=== PATIENT | male | born 1940 | race Caucasian/White ===

== ENCOUNTER 2017-09-03 08:44 | Day surgery (SDC) | payer MEDICARE, OTHER ==
[~2017-09-03 08:44] MED LIST: KETOROLAC TROMETHAMINE 0.45% 4 DROP/0.4 ML DROPERETTE OD PRN
[2017-09-03] MEDS ORDERED: EPINEPHRINE INJ/PF 1 MG/1 ML AMPULE ONE (08:56)
[2017-09-03] MEDS ORDERED: LIDOCAINE 1% INJ-PF (10 MG/ML) 30 ML SDV ONE (08:56)
[2017-09-03] MEDS ORDERED: CHONDR SU A NA/HYALUR INTRAOC KIT (SURGICARE) ONE (08:56)
[2017-09-03] MEDS: TROPICAMIDE 1% OPH SOLN 3 ML OD PRN ×3 (09:59→10:32)
[2017-09-03] MEDS: CYCLOPENTOLATE 0.2%/PHENYLEPHRINE 1% OPH SOLN 2 ML OD PRN ×3 (09:59→10:32)
[2017-09-03] MEDS: BESIFLOXACIN HCL 0.6% OPH SUSP 5 ML BOTTLE OD PRN ×4 (10:00→11:00)
[2017-09-03] MEDS: TETRACAINE HCL 0.5% OPH SOLN 2 ML OD PRN ×3 (10:01→10:35)
[2017-09-03] MEDS ORDERED: FENTANYL CITRATE INJ/PF 100 MCG/2 ML AMPUL ONE (10:20)
[2017-09-03] MEDS ORDERED: MIDAZOLAM 2 MG/2 ML INJ ONE (10:20)
--- NOTE | 2017-09-03 13:39 | [facility] DISCHARGE SUMMARY E ---
[facility] Discharge Summary NAME: MELIA FLOWERS AGE: 77Y ADMITTED: 09/03/2017 DISCHARGED: 09/03/2017 DIAGNOSIS: CATARACT, RIGHT EYE. SUMMARY: This is a 77-year-old male who underwent cataract extraction of the right eye. He underwent surgery because he was having trouble seeing medicine bottles and other small print. He should be on a regular diet, no bending at his waist, no heavy lifting. He should use Besivance, Ilevro and Durezol at 3 p.m. and 8 p.m. and sleep with a rigid shield. I will see him for his 1 day postoperative tomorrow. DICTATING PHYSICIAN: CARRIE COE M.D. [id number] PHY#: [id number] ID: [id number] JOB#: [id number] ACCT: [id number] cc:CARRIE COE M.D. >
--- NOTE | 2017-09-03 13:39 | [facility] OPERATIVE REPORT E ---
[facility] Operative Report NAME: MELIA FLOWERS AGE: 77Y DATE OF SURGERY: 09/03/2017 ROOM: PREOPERATIVE DIAGNOSIS: CATARACT, RIGHT EYE. POSTOPERATIVE DIAGNOSIS: CATARACT, RIGHT EYE. OPERATION: Cataract extraction with intraocular lens implant of the right eye. SURGEON: CARRIE COE M.D. ANESTHESIA: Topical. PROCEDURE: After obtaining appropriate consent, the patient's @ eye was prepped and draped in sterile fashion as well as the surgeon in a sterile manner and cataract surgery was started. First a paracentesis blade was used to make a small side-port incision. Viscoelastic was used to inflate the anterior chamber. Next a 2.4 mm incision was made with the paracentesis blade. A continuous capsulorrhexis incision was made using a cystotome and Utrata forceps. Following this hydrodissection was carried out to make the lens fully loose and mobile and it was rotated 90 degrees. Following this, a pjufvn-tvp-oudehnm technique was used to phacoemulsify the lens with a CDE of 20.02. The remaining cortex was removed with irrigation/aspiration. Provisc was instilled into the capsular bag to inflate the bag. A SN60WF, 22.5 diopter lens was placed. The remaining viscoelastic material was removed with irrigation/aspiration. Following this, a 10-0 nylon suture was used to close the incision and it was found to be watertight. Vigamox was instilled in the eye and a protective shield was placed over the eye. The patient returned to the postoperative recovery in stable condition. DICTATING PHYSICIAN: CARRIE COE M.D. [id number] PHY#: [id number] ID: [id number] JOB#: [id number] ACCT: [id number] cc:CARRIE COE M.D. >
== END 2017-09-03 11:42 | disposition home or self-care (01) ==
LOC: SC 08:44
PROVIDERS: ATTEND Internal Medicine
DX: H25.13 Age-related nuclear cataract, bilateral (principal); I10 Essential (primary) hypertension; Z96.653 Presence of artificial knee joint, bilateral; Z79.899 Other long term (current) drug therapy; Z79.82 Long term (current) use of aspirin
CPT/HCPCS: 66984; V2632; J2250; J3490 ×2; A9270; J0171; J3010; 142